=== PATIENT | female | born 1950 | race Caucasian/White ===

== ENCOUNTER 2016-11-20 20:40 | Emergency (ER) | payer MEDICARE, OTHER ==
[2016-11-20] MEDS ORDERED: Bacitracin Zinc 1 Packet ONE (21:41)
[2016-11-21 02:55] LABS: ALT (SGPT) 16 U/L (0-55); AST (SGOT) 14 U/L (5-34); Alkaline Phosphatase 137 U/L (40-150); Anion Gap 19 mmol/L (10-20); BUN (Urea Nitrogen) 35 mg/dL (9.8-20.1); Bilirubin, Total 0.3 mg/dL (0.2-1.2); Calc. Creatinine Clearance 0 mL/min (70-130); Calcium 9.9 mg/dL (7.8-10.44); Carbon Dioxide 23 mmol/L (23-31); Chloride 101 mmol/L (98-107); Estimated GFR-MDRD 33; Globulin 3.9 g/dL (2.4-3.5); Protein, Total 7.9 g/dL (5.8-8.1)
[2016-11-21 02:58] LABS: Troponin I Less than 0.010 ng/mL (< 0.028)
[2016-11-21 03:00] LABS: #Basophils 0.1 thou/uL (0.0-0.2); #Eosinphils 0.4 thou/uL (0.0-0.7); #Lymphocytes 4.3 thou/uL (1.20-3.40); #Monocytes 0.4 thou/uL (0.11-0.59); #Neutrophils 5.3 thou/uL (1.40-6.50); %Basophils 1.4 % (0.0-1.0); %Eosinophils 3.7 % (0.0-10.0); %Monocytes 3.8 % (0.0-10.0); Hematocrit 46.5 % (36.0-47.0); Mean Platelet Volume 6.7 fL (7.4-10.4); White Blood Cell (WBC) Count 10.5 thou/uL (4.8-10.8)
[2016-11-21 03:03] LABS: PTT 49.3 SEC (22.9-36.1); Prothrombin Time 26.2 SEC (12.0-14.7)
[2016-11-21 03:08] LABS: Bilirubin Negative (Negative); Blood, Urine Negative (Negative); Glucose, Urine (Dipstick) 500 mg/dL (Negative); Ketone, Urine Negative (Negative); Nitrite Negative (Negative); Protein, Urine (Dipstick) Negative (Neg-Trace); Urobilinogen 0.2 mg/dL (0.2-1.0)
--- NOTE | 2016-11-21 06:01 | CT ---
CT OF THE BRAIN WITHOUT CONTRAST 11/20/2016 A non-contrast CT was done following trauma. The ventricles are normal in size for age and show no shift. No intracranial bleeding or extraaxial hematoma was seen. There is no sign of acute stroke, mass, or edema. The calvarium appears intact. The sphenoid sinus and visible paranasal sinuses ar e clear. IMPRESSION: No acute intracranial findings. POS: HOME
--- NOTE | 2016-11-21 06:07 | RAD ---
LEFT HAND THREE VIEWS 11/20/2016 A nondisplaced fracture is seen at the base of the proximal phalanx of the index finger that extends into the second MCP joint. The remainder of the hand and wrist appears intact. On the oblique vie w, there was a questionable short line in the distal pole of the scaphoid laterally, but it seems mo re likely to be a trabecular marking than fracture. This should be correlated with any point tender ness here. Otherwise, osteoarthritis was prominently noted in the fingers, particularly the DIP jessica nts. IMPRESSION: 1. Acute fracture at the base of the proximal phalanx of the index finger. 2. Osteoarthritis. 3. Equivocal line in the distal pole of the scaphoid that is most likely just a trabecular marking. If there is point tenderness in the snuff box, however, then delayed scaphoid views in 7-10 days sh ould be considered. Code T. POS: HOME
--- NOTE | 2016-11-21 06:09 | RAD ---
PORTABLE CHEST 11/20/2016 An AP portable film at 2236 hours shows the heart to be normal in size for body habitus and projecti on. There has been a prior CABG. There are no congestive findings, pleural effusions, or lobar inf iltrates. Streaking around the lingula region is most likely scarring. IMPRESSION: No acute findings. POS: HOME
== END 2016-11-20 23:54 | disposition short-term general hospital (02) ==
LOC: BURERS 20:40
DX: S62.611A Displaced fracture of proximal phalanx of left index finger, initial encounter for closed fracture (principal); S00.12XA Contusion of left eyelid and periocular area, initial encounter; S60.212A Contusion of left wrist, initial encounter; I95.9 Hypotension, unspecified; E11.9 Type 2 diabetes mellitus without complications; J44.9 Chronic obstructive pulmonary disease, unspecified; Z79.4 Long term (current) use of insulin; Z87.891 Personal history of nicotine dependence; W19.XXXA Unspecified fall, initial encounter
CPT/HCPCS: 36416; 70450; 71010; 80053; 81003; 82553; 85025; 85610; 85730; 96360

== ENCOUNTER 2017-05-04 23:36 | Emergency (ER) | payer MEDICARE ==
[2017-05-04] MEDS ORDERED: Metoprolol Tartrate 5 MG/5 ML VIAL ONE (23:54)
[2017-05-04] MEDS ORDERED: Morphine Sulfate 2 MG/ML SYRINGE ONE (23:56)
[2017-05-04] MEDS ORDERED: diphenhydrAMINE HCl 50 MG/ML 1 ML VIAL ONE (23:56)
[2017-05-05 00:06] LABS: #Basophils 0.1 thou/uL (0.0-0.2); #Eosinphils 0.9 thou/uL (0.0-0.7); #Lymphocytes 3.5 thou/uL (1.20-3.40); #Monocytes 0.5 thou/uL (0.11-0.59); %Basophils 1.4 % (0.0-1.0); %Lymphocytes 34.6 % (21.0-51.0); %Monocytes 4.5 % (0.0-10.0); %Neutrophils 50.5 % (42.0-75.0); Hemoglobin 14.2 g/dL (12.0-16.0); Mean Corpuscular HGB CONC 33.3 g/dL (32.0-36.0); Mean Corpuscular Hemoglobin 29.6 pg (27.0-31.0); Mean Corpuscular Volume 89.2 fl (81.0-99.0); Mean Platelet Volume 6.7 fL (7.4-10.4); Platelet Count 332 thou/uL (130-400); RBC Distribution Width 12.7 % (11.5-14.5)
[2017-05-05 00:09] LABS: INR-International Normal Ratio 3.9; PTT 70.7 SEC (22.9-36.1); Prothrombin Time 40.5 SEC (12.0-14.7)
[2017-05-05 00:19] LABS: ALT (SGPT) 14 U/L (8-55); AST (SGOT) 9 U/L (5-34); Albumin 3.6 g/dL (3.4-4.8); Alkaline Phosphatase 130 U/L (40-150); Anion Gap 18 mmol/L (10-20); BUN (Urea Nitrogen) 21 mg/dL (9.8-20.1); Bilirubin, Total 0.3 mg/dL (0.2-1.2); Calc. Creatinine Clearance 0 mL/min (70-130); Calcium 9.5 mg/dL (7.8-10.44); Carbon Dioxide 22 mmol/L (23-31); Chloride 100 mmol/L (98-107); Estimated GFR-MDRD 37; Globulin 3.6 g/dL (2.4-3.5); Glucose 447 mg/dL (80-115); Lipase 13 U/L (8-78); Protein, Total 7.2 g/dL (6.0-8.3); Sodium 136 mmol/L (136-145)
[2017-05-05 00:20] LABS: CKMB 1.5 ng/mL (0-6.6); Troponin I Less than 0.010 ng/mL (< 0.028)
[2017-05-05] MEDS ORDERED: Insulin Regular 300 UNITS/3 ML VIAL ONE (00:31)
--- NOTE | 2017-05-05 07:31 | RAD ---
PORTABLE CHEST: Date: 05/04/17 An AP portable film at 2352 hours is compared with a 11/20/16 study. FINDINGS: The cardiac size is unchanged. There has been a prior CABG. No acute infiltrate or effusion present. Some lingular scarring is suggested. There is no vascular congestion or edema. IMPRESSION: Stable exam showing no acute finding. POS: HOME
== END 2017-05-05 01:33 | disposition short-term general hospital (02) ==
LOC: BURERS 23:36
DX: R07.9 Chest pain, unspecified (principal); R79.1 Abnormal coagulation profile; E11.65 Type 2 diabetes mellitus with hyperglycemia; E03.9 Hypothyroidism, unspecified; I10 Essential (primary) hypertension; M19.90 Unspecified osteoarthritis, unspecified site; Z79.4 Long term (current) use of insulin; Z79.899 Other long term (current) drug therapy; Z79.84 Long term (current) use of oral hypoglycemic drugs
CPT/HCPCS: 71010; 80053; 82553; 83690; 83880; 84484; 85025; 85610; 85730; 93005; 94760; 96374; 96375; J1200; J1815; J2270

== ENCOUNTER 2017-12-21 20:31 | Emergency (ER) | payer MEDICARE ==
[2017-12-21] MEDS ORDERED: Cyclobenzaprine 10 MG TAB ONE (21:34)
== END 2017-12-21 21:47 | disposition home or self-care (01) ==
LOC: BURERS 20:31
DX: M62.838 Other muscle spasm (principal); R21 Rash and other nonspecific skin eruption; E66.9 Obesity, unspecified; I25.10 Atherosclerotic heart disease of native coronary artery without angina pectoris; J44.9 Chronic obstructive pulmonary disease, unspecified; E11.9 Type 2 diabetes mellitus without complications; E03.9 Hypothyroidism, unspecified; M19.90 Unspecified osteoarthritis, unspecified site; I11.0 Hypertensive heart disease with heart failure; I50.9 Heart failure, unspecified; Z79.4 Long term (current) use of insulin; Z79.899 Other long term (current) drug therapy; Z79.01 Long term (current) use of anticoagulants
CPT/HCPCS: 99282

== ENCOUNTER 2018-04-16 14:34 | Inpatient (IN) | payer MEDICARE ==
[~2018-04-16 14:34] MED LIST: Iopamidol 370 76% 100 ML VIAL ONE
[2018-04-16] MEDS ORDERED: Dextrose 5% in Water 1,000 ML IV PRN (20:45)
[2018-04-16] MEDS ORDERED: Dextrose 50% Abboject 50 ML SYRINGE SLOW IVP PRN (20:45)
[2018-04-16] MEDS ORDERED: Gabapentin 100 MG CAP PO SCH ×2 (21:00→21:15)
[2018-04-16] MEDS ORDERED: rOPINIRole HCl 2 MG TAB PO SCH (21:15)
[2018-04-16] MEDS ORDERED: Gabapentin 300 MG CAP PO SCH (21:15)
[2018-04-16] MEDS: Potassium Chloride 10 MEQ TAB PO SCH (21:35)
[2018-04-16] MEDS: Clindamycin 150 MG CAP PO SCH (21:36)
[2018-04-16] MEDS: DULoxetine 30 MG CAP PO SCH (21:37)
[2018-04-16] MEDS: Amitriptyline HCl 25 MG TAB PO SCH (21:38)
[2018-04-16] MEDS: Insulin Regular 300 UNITS/3 ML VIAL SC PRN (21:54)
[2018-04-17] MEDS: Levothyroxine Sodium 50 MCG TAB PO SCH (05:51)
[2018-04-17] MEDS: Clindamycin 150 MG CAP PO SCH ×3 (09:09→21:00)
[2018-04-17] MEDS: Potassium Chloride 10 MEQ TAB PO SCH ×2 (09:10→21:02)
[2018-04-17] MEDS: Furosemide 40 MG TAB PO SCH ×2 (09:11→15:08)
[2018-04-17] MEDS: Gabapentin 300 MG CAP PO SCH ×3 (09:11→21:01)
[2018-04-17] MEDS: DULoxetine 30 MG CAP PO SCH ×2 (09:11→21:00)
[2018-04-17] MEDS: Aspirin 81 mg Enteric Coated Tablet PO SCH (09:12)
[2018-04-17] MEDS: Famotidine 20 MG TAB PO SCH ×2 (09:12→21:02)
[2018-04-17] MEDS: Saccharomyces boulardii 250 MG CAP PO SCH (09:12)
[2018-04-17] MEDS: Carvedilol 12.5 MG TAB PO SCH ×2 (09:12→17:54)
[2018-04-17] MEDS: Spironolactone 25 MG TAB PO SCH (09:12)
[2018-04-17] MEDS: NPH, Human Insulin Isophane 300 UNIT/3 ML VIAL SC SCH ×2 (09:13→17:52)
[2018-04-17] MEDS: Insulin Regular 300 UNITS/3 ML VIAL SC PRN ×4 (09:13→21:03)
[2018-04-17] MEDS: Gabapentin 100 MG CAP PO SCH ×3 (09:23→21:01)
[2018-04-17] MEDS: Clotrimazole 1% Cream 15 GM TUBE TOP SCH ×2 (13:25→20:59)
[2018-04-17] MEDS: Silver Sulfadiazine 1% Cream 20 GM TUBE TOP SCH (20:58)
[2018-04-17] MEDS: rOPINIRole HCl 2 MG TAB PO SCH (21:01)
[2018-04-17] MEDS: Amitriptyline HCl 25 MG TAB PO SCH (21:02)
[2018-04-18 05:33] LABS: Anion Gap 15 mmol/L (10-20); BUN (Urea Nitrogen) 20 mg/dL (9.8-20.1); Calc. Creatinine Clearance 105 mL/min (70-130); Calcium 8.9 mg/dL (7.8-10.44); Carbon Dioxide 26 mmol/L (23-31); Chloride 99 mmol/L (98-107); Estimated GFR-MDRD 61; Glucose 78 mg/dL (80-115); Sodium 136 mmol/L (136-145)
[2018-04-18 05:56] LABS: #Basophils 0.1 thou/uL (0.0-0.2); #Eosinphils 0.6 thou/uL (0.0-0.7); #Monocytes 0.6 thou/uL (0.11-0.59); #Neutrophils 3.6 thou/uL (1.40-6.50); %Basophils 1.3 % (0.0-1.0); %Eosinophils 7.2 % (0.0-10.0); %Lymphocytes 38.8 % (21.0-51.0); %Monocytes 7.4 % (0.0-10.0); %Neutrophils 45.4 % (42.0-75.0); Anisocytosis SLIGHT = 6-15 cells (100X) (0-5/hpf); Hemoglobin 8.8 g/dL (12.0-16.0); MDiff Complete? YES; Mean Corpuscular HGB CONC 32.3 g/dL (32.0-36.0); Mean Corpuscular Hemoglobin 22.5 pg (27.0-31.0); Mean Corpuscular Volume 69.8 fL (78.0-98.0); Mean Platelet Volume 5.2 fL (7.4-10.4); Microcytosis SLIGHT = 6-15 cells (100X) (0-5/hpf); PLT Morphology Comment Appears Increased; Platelet Count 493 thou/uL (130-400); RBC Distribution Width 15.4 % (11.5-14.5); Red Blood Cell (RBC) Count 3.89 mill/uL (4.20-5.40); Small Platelets SLIGHT; White Blood Cell (WBC) Count 7.8 thou/uL (4.8-10.8)
[2018-04-18] MEDS: Levothyroxine Sodium 50 MCG TAB PO SCH (06:03)
[2018-04-18] MEDS: Saccharomyces boulardii 250 MG CAP PO SCH (08:23)
[2018-04-18] MEDS: Gabapentin 100 MG CAP PO SCH ×3 (08:24→20:26)
[2018-04-18] MEDS: Gabapentin 300 MG CAP PO SCH ×3 (08:24→20:24)
[2018-04-18] MEDS: Clindamycin 150 MG CAP PO SCH ×3 (08:24→20:27)
[2018-04-18] MEDS: Furosemide 40 MG TAB PO SCH ×2 (08:25→15:03)
[2018-04-18] MEDS: Carvedilol 12.5 MG TAB PO SCH ×2 (08:25→16:32)
[2018-04-18] MEDS: DULoxetine 30 MG CAP PO SCH ×2 (08:26→20:26)
[2018-04-18] MEDS: Aspirin 81 mg Enteric Coated Tablet PO SCH (08:26)
[2018-04-18] MEDS: Spironolactone 25 MG TAB PO SCH (08:27)
[2018-04-18] MEDS: Famotidine 20 MG TAB PO SCH ×2 (08:27→20:28)
[2018-04-18] MEDS: Potassium Chloride 10 MEQ TAB PO SCH ×2 (08:27→20:28)
[2018-04-18] MEDS: NPH, Human Insulin Isophane 300 UNIT/3 ML VIAL SC SCH ×2 (08:29→16:32)
[2018-04-18] MEDS: Clotrimazole 1% Cream 15 GM TUBE TOP SCH (08:42)
[2018-04-18] MEDS: Silver Sulfadiazine 1% Cream 20 GM TUBE TOP SCH (08:43)
[2018-04-18] MEDS: Insulin Regular 300 UNITS/3 ML VIAL SC PRN (12:51)
[2018-04-18] MEDS: Nystatin Powder 15 GM BOT TOP PRN (15:04)
[2018-04-18] MEDS: rOPINIRole HCl 2 MG TAB PO SCH (20:24)
[2018-04-18] MEDS: Amitriptyline HCl 25 MG TAB PO SCH (20:28)
[2018-04-19] MEDS: Levothyroxine Sodium 50 MCG TAB PO SCH (06:20)
[2018-04-19] MEDS: Saccharomyces boulardii 250 MG CAP PO SCH (08:32)
[2018-04-19] MEDS: Enoxaparin Sodium 40 MG/0.4 ML SYRINGE SC SCH (08:32)
[2018-04-19] MEDS: Gabapentin 100 MG CAP PO SCH ×3 (08:33→20:49)
[2018-04-19] MEDS: Clindamycin 150 MG CAP PO SCH ×3 (08:33→20:47)
[2018-04-19] MEDS: Carvedilol 12.5 MG TAB PO SCH ×2 (08:33→17:25)
[2018-04-19] MEDS: Aspirin 81 mg Enteric Coated Tablet PO SCH (08:33)
[2018-04-19] MEDS: Furosemide 40 MG TAB PO SCH ×2 (08:33→14:58)
[2018-04-19] MEDS: Potassium Chloride 10 MEQ TAB PO SCH ×2 (08:34→20:50)
[2018-04-19] MEDS: DULoxetine 30 MG CAP PO SCH ×2 (08:34→20:50)
[2018-04-19] MEDS: Famotidine 20 MG TAB PO SCH ×2 (08:35→20:52)
[2018-04-19] MEDS: Spironolactone 25 MG TAB PO SCH (08:35)
[2018-04-19] MEDS: Gabapentin 300 MG CAP PO SCH ×3 (08:36→20:49)
[2018-04-19] MEDS ORDERED: Milk Of Magnesia 30 ML UDCUP PO PRN (10:05)
[2018-04-19] MEDS ORDERED: Bisacodyl 10 MG SUPP PR PRN (10:05)
[2018-04-19] MEDS ORDERED: NPH, Human Insulin Isophane 300 UNIT/3 ML VIAL SC SCH (10:45)
[2018-04-19] MEDS: Silver Sulfadiazine 1% Cream 20 GM TUBE TOP SCH (10:54)
[2018-04-19] MEDS: NPH, Human Insulin Isophane 300 UNIT/3 ML VIAL SC SCH ×2 (11:18→17:26)
[2018-04-19] MEDS: Insulin Regular 300 UNITS/3 ML VIAL SC PRN ×3 (13:05→21:01)
[2018-04-19] MEDS: Amitriptyline HCl 25 MG TAB PO SCH (20:52)
[2018-04-19] MEDS: rOPINIRole HCl 2 MG TAB PO SCH (20:52)
[2018-04-19] MEDS: Nystatin Powder 15 GM BOT TOP PRN (21:19)
[2018-04-20] MEDS: Levothyroxine Sodium 50 MCG TAB PO SCH (07:19)
[2018-04-20] MEDS ORDERED: NPH, Human Insulin Isophane 300 UNIT/3 ML VIAL SC SCH (08:00)
[2018-04-20] MEDS: Spironolactone 25 MG TAB PO SCH (08:07)
[2018-04-20] MEDS: DULoxetine 30 MG CAP PO SCH ×2 (08:07→20:39)
[2018-04-20] MEDS: Furosemide 40 MG TAB PO SCH ×2 (08:08→15:07)
[2018-04-20] MEDS: Saccharomyces boulardii 250 MG CAP PO SCH (08:09)
[2018-04-20] MEDS: Aspirin 81 mg Enteric Coated Tablet PO SCH (08:09)
[2018-04-20] MEDS: Gabapentin 300 MG CAP PO SCH ×3 (08:09→20:39)
[2018-04-20] MEDS: Gabapentin 100 MG CAP PO SCH ×3 (08:09→20:39)
[2018-04-20] MEDS: Famotidine 20 MG TAB PO SCH ×2 (08:09→20:40)
[2018-04-20] MEDS: Potassium Chloride 10 MEQ TAB PO SCH (08:09)
[2018-04-20] MEDS: Clindamycin 150 MG CAP PO SCH ×3 (08:10→20:38)
[2018-04-20] MEDS: Carvedilol 12.5 MG TAB PO SCH ×2 (08:10→17:03)
[2018-04-20] MEDS: Enoxaparin Sodium 40 MG/0.4 ML SYRINGE SC SCH (08:10)
[2018-04-20] MEDS: Insulin Regular 300 UNITS/3 ML VIAL SC PRN ×3 (08:11→17:04)
[2018-04-20] MEDS: Silver Sulfadiazine 1% Cream 20 GM TUBE TOP SCH (08:24)
[2018-04-20] MEDS: Acetaminophen 325 MG TAB PO PRN ×2 (12:51→20:55)
[2018-04-20] MEDS: Potassium Chloride 20 MEQ TAB PO SCH (17:03)
[2018-04-20] MEDS: NPH, Human Insulin Isophane 300 UNIT/3 ML VIAL SC SCH (17:04)
[2018-04-20] MEDS: Amitriptyline HCl 25 MG TAB PO SCH (20:40)
[2018-04-20] MEDS: rOPINIRole HCl 2 MG TAB PO SCH (20:40)
[2018-04-20] MEDS ORDERED: Insulin Regular 300 UNITS/3 ML VIAL SC SCH (21:30)
[2018-04-21] MEDS: Levothyroxine Sodium 50 MCG TAB PO SCH (05:58)
[2018-04-21] MEDS: Gabapentin 100 MG CAP PO SCH ×3 (07:59→21:09)
[2018-04-21] MEDS: Saccharomyces boulardii 250 MG CAP PO SCH (07:59)
[2018-04-21] MEDS: Gabapentin 300 MG CAP PO SCH ×3 (07:59→21:09)
[2018-04-21] MEDS: Spironolactone 25 MG TAB PO SCH (07:59)
[2018-04-21] MEDS: Potassium Chloride 20 MEQ TAB PO SCH ×2 (08:00→17:32)
[2018-04-21] MEDS: Famotidine 20 MG TAB PO SCH ×2 (08:00→21:10)
[2018-04-21] MEDS: DULoxetine 30 MG CAP PO SCH ×2 (08:00→21:10)
[2018-04-21] MEDS: Carvedilol 12.5 MG TAB PO SCH ×2 (08:01→17:32)
[2018-04-21] MEDS: Furosemide 40 MG TAB PO SCH ×2 (08:01→15:08)
[2018-04-21] MEDS: Aspirin 81 mg Enteric Coated Tablet PO SCH (08:01)
[2018-04-21] MEDS: Clindamycin 150 MG CAP PO SCH ×3 (08:01→21:11)
[2018-04-21] MEDS: Enoxaparin Sodium 40 MG/0.4 ML SYRINGE SC SCH (08:02)
[2018-04-21] MEDS: Acetaminophen 325 MG TAB PO PRN (08:02)
[2018-04-21] MEDS: Silver Sulfadiazine 1% Cream 20 GM TUBE TOP SCH (08:03)
[2018-04-21] MEDS: Insulin Regular 300 UNITS/3 ML VIAL SC PRN ×4 (08:03→21:38)
[2018-04-21] MEDS: Insulin Regular 300 UNITS/3 ML VIAL SC SCH ×2 (08:04→17:41)
[2018-04-21] MEDS: NPH, Human Insulin Isophane 300 UNIT/3 ML VIAL SC SCH ×2 (08:04→17:32)
[2018-04-21] MEDS: hydrOXYzine 25 MG TAB PO SCH (17:32)
[2018-04-21] MEDS: rOPINIRole HCl 2 MG TAB PO SCH (21:09)
[2018-04-22] MEDS: hydrOXYzine 25 MG TAB PO SCH ×5 (00:10→23:12)
[2018-04-22] MEDS: Levothyroxine Sodium 50 MCG TAB PO SCH (05:54)
[2018-04-22] MEDS: Gabapentin 300 MG CAP PO SCH ×3 (08:11→20:48)
[2018-04-22] MEDS: Saccharomyces boulardii 250 MG CAP PO SCH (08:11)
[2018-04-22] MEDS: Clindamycin 150 MG CAP PO SCH ×3 (08:11→20:47)
[2018-04-22] MEDS: Aspirin 81 mg Enteric Coated Tablet PO SCH (08:12)
[2018-04-22] MEDS: Carvedilol 12.5 MG TAB PO SCH ×2 (08:13→16:46)
[2018-04-22] MEDS: Gabapentin 100 MG CAP PO SCH ×3 (08:13→20:48)
[2018-04-22] MEDS: DULoxetine 30 MG CAP PO SCH ×2 (08:13→20:48)
[2018-04-22] MEDS: Famotidine 20 MG TAB PO SCH ×2 (08:13→20:49)
[2018-04-22] MEDS: Spironolactone 25 MG TAB PO SCH (08:13)
[2018-04-22] MEDS: Silver Sulfadiazine 1% Cream 20 GM TUBE TOP SCH (08:13)
[2018-04-22] MEDS: Enoxaparin Sodium 40 MG/0.4 ML SYRINGE SC SCH (08:14)
[2018-04-22] MEDS: Furosemide 40 MG TAB PO SCH ×2 (08:14→15:12)
[2018-04-22] MEDS: Potassium Chloride 20 MEQ TAB PO SCH ×2 (08:14→16:46)
[2018-04-22] MEDS: Nystatin Powder 15 GM BOT TOP PRN (08:15)
[2018-04-22] MEDS: NPH, Human Insulin Isophane 300 UNIT/3 ML VIAL SC SCH ×2 (08:15→16:50)
[2018-04-22] MEDS: Insulin Regular 300 UNITS/3 ML VIAL SC SCH ×2 (08:17→16:59)
[2018-04-22] MEDS: Insulin Regular 300 UNITS/3 ML VIAL SC PRN ×2 (08:17→12:46)
[2018-04-22] MEDS: Acetaminophen 325 MG TAB PO PRN (11:38)
[2018-04-22] MEDS: rOPINIRole HCl 2 MG TAB PO SCH (20:47)
[2018-04-23 01:33] VITALS: BMI 39.6
[2018-04-23] MEDS: Levothyroxine Sodium 50 MCG TAB PO SCH (05:47)
[2018-04-23] MEDS: hydrOXYzine 25 MG TAB PO SCH ×3 (05:48→17:31)
[2018-04-23 06:20] LABS: Anion Gap 17 mmol/L (10-20); BUN (Urea Nitrogen) 23 mg/dL (9.8-20.1); Calc. Creatinine Clearance 84 mL/min (70-130); Calcium 9.5 mg/dL (7.8-10.44); Carbon Dioxide 27 mmol/L (23-31); Chloride 97 mmol/L (98-107); Estimated GFR-MDRD 44; Glucose 126 mg/dL (80-115); Potassium 3.9 mmol/L (3.5-5.1); Sodium 137 mmol/L (136-145)
[2018-04-23 06:33] LABS: #Basophils 0.1 thou/uL (0.0-0.2); #Eosinphils 0.5 thou/uL (0.0-0.7); #Lymphocytes 3.2 thou/uL (1.20-3.40); #Monocytes 0.4 thou/uL (0.11-0.59); #Neutrophils 2.9 thou/uL (1.40-6.50); %Basophils 1.2 % (0.0-1.0); %Eosinophils 6.6 % (0.0-10.0); %Lymphocytes 45.7 % (21.0-51.0); %Monocytes 5.6 % (0.0-10.0); %Neutrophils 40.9 % (42.0-75.0); Hemoglobin 8.5 g/dL (12.0-16.0); Mean Corpuscular HGB CONC 33.3 g/dL (32.0-36.0); Mean Corpuscular Hemoglobin 23.2 pg (27.0-31.0); Mean Corpuscular Volume 69.9 fL (78.0-98.0); Mean Platelet Volume 4.5 fL (7.4-10.4); Platelet Count 568 thou/uL (130-400); RBC Distribution Width 15.5 % (11.5-14.5); Red Blood Cell (RBC) Count 3.64 mill/uL (4.20-5.40)
[2018-04-23] MEDS: Insulin Regular 300 UNITS/3 ML VIAL SC SCH ×2 (07:39→17:31)
[2018-04-23] MEDS: NPH, Human Insulin Isophane 300 UNIT/3 ML VIAL SC SCH ×2 (07:40→17:32)
[2018-04-23] MEDS: Insulin Regular 300 UNITS/3 ML VIAL SC PRN ×4 (07:41→21:46)
[2018-04-23] MEDS: Carvedilol 12.5 MG TAB PO SCH ×2 (08:53→17:30)
[2018-04-23] MEDS: Potassium Chloride 20 MEQ TAB PO SCH ×2 (08:54→17:30)
[2018-04-23] MEDS: Furosemide 40 MG TAB PO SCH ×2 (08:54→14:45)
[2018-04-23] MEDS: Enoxaparin Sodium 40 MG/0.4 ML SYRINGE SC SCH (08:54)
[2018-04-23] MEDS: Gabapentin 300 MG CAP PO SCH ×3 (08:55→21:27)
[2018-04-23] MEDS: Gabapentin 100 MG CAP PO SCH ×3 (08:55→21:27)
[2018-04-23] MEDS: Aspirin 81 mg Enteric Coated Tablet PO SCH (08:55)
[2018-04-23] MEDS: Spironolactone 25 MG TAB PO SCH (08:56)
[2018-04-23] MEDS: Famotidine 20 MG TAB PO SCH ×2 (08:56→21:26)
[2018-04-23] MEDS: DULoxetine 30 MG CAP PO SCH ×2 (08:56→21:26)
[2018-04-23] MEDS: Clindamycin 150 MG CAP PO SCH ×3 (08:59→21:25)
[2018-04-23] MEDS: Saccharomyces boulardii 250 MG CAP PO SCH (09:02)
[2018-04-23] MEDS: Silver Sulfadiazine 1% Cream 20 GM TUBE TOP SCH (09:13)
[2018-04-23 09:55] LABS: Anisocytosis SLIGHT = 6-15 cells (100X) (0-5/hpf); Microcytosis SLIGHT = 6-15 cells (100X) (0-5/hpf)
[2018-04-23 09:56] LABS: PLT Morphology Comment Appears Increased
[2018-04-23] MEDS: rOPINIRole HCl 2 MG TAB PO SCH (18:19)
[2018-04-24] MEDS: hydrOXYzine 25 MG TAB PO SCH ×5 (01:15→23:15)
[2018-04-24] MEDS: Acetaminophen 325 MG TAB PO PRN ×2 (06:11→19:44)
[2018-04-24] MEDS: Levothyroxine Sodium 50 MCG TAB PO SCH (06:12)
[2018-04-24] MEDS: Clindamycin 150 MG CAP PO SCH ×3 (08:11→20:49)
[2018-04-24] MEDS: Gabapentin 100 MG CAP PO SCH ×3 (08:14→20:50)
[2018-04-24] MEDS: Gabapentin 300 MG CAP PO SCH ×3 (08:14→20:49)
[2018-04-24] MEDS: DULoxetine 30 MG CAP PO SCH ×2 (08:14→20:49)
[2018-04-24] MEDS: Furosemide 40 MG TAB PO SCH ×2 (08:14→14:36)
[2018-04-24] MEDS: Saccharomyces boulardii 250 MG CAP PO SCH (08:15)
[2018-04-24] MEDS: Spironolactone 25 MG TAB PO SCH (08:15)
[2018-04-24] MEDS: Famotidine 20 MG TAB PO SCH ×2 (08:15→20:49)
[2018-04-24] MEDS: Aspirin 81 mg Enteric Coated Tablet PO SCH (08:15)
[2018-04-24] MEDS: Carvedilol 12.5 MG TAB PO SCH ×2 (08:15→17:54)
[2018-04-24] MEDS: Potassium Chloride 20 MEQ TAB PO SCH ×2 (08:16→17:53)
[2018-04-24] MEDS: Enoxaparin Sodium 40 MG/0.4 ML SYRINGE SC SCH (08:16)
[2018-04-24] MEDS: Silver Sulfadiazine 1% Cream 20 GM TUBE TOP SCH (08:16)
[2018-04-24] MEDS: Insulin Regular 300 UNITS/3 ML VIAL SC SCH ×2 (08:17→17:54)
[2018-04-24] MEDS: Insulin Regular 300 UNITS/3 ML VIAL SC PRN ×4 (08:18→20:56)
[2018-04-24] MEDS: NPH, Human Insulin Isophane 300 UNIT/3 ML VIAL SC SCH ×2 (08:18→17:55)
[2018-04-24] MEDS: Nystatin Powder 15 GM BOT TOP PRN (14:37)
[2018-04-24] MEDS: rOPINIRole HCl 2 MG TAB PO SCH (19:41)
[2018-04-25] MEDS: hydrOXYzine 25 MG TAB PO SCH ×4 (05:08→22:11)
[2018-04-25] MEDS: Levothyroxine Sodium 50 MCG TAB PO SCH (05:08)
[2018-04-25] MEDS: Acetaminophen 325 MG TAB PO PRN ×2 (05:09→20:42)
[2018-04-25] MEDS: Gabapentin 100 MG CAP PO SCH ×3 (08:23→20:40)
[2018-04-25] MEDS: Gabapentin 300 MG CAP PO SCH ×3 (08:23→20:39)
[2018-04-25] MEDS: DULoxetine 30 MG CAP PO SCH ×2 (08:25→20:40)
[2018-04-25] MEDS: Potassium Chloride 20 MEQ TAB PO SCH ×2 (08:25→16:37)
[2018-04-25] MEDS: Famotidine 20 MG TAB PO SCH ×2 (08:25→20:41)
[2018-04-25] MEDS: Aspirin 81 mg Enteric Coated Tablet PO SCH (08:25)
[2018-04-25] MEDS: Furosemide 40 MG TAB PO SCH ×2 (08:25→14:58)
[2018-04-25] MEDS: Carvedilol 12.5 MG TAB PO SCH ×2 (08:25→16:37)
[2018-04-25] MEDS: Spironolactone 25 MG TAB PO SCH (08:25)
[2018-04-25] MEDS: Clindamycin 150 MG CAP PO SCH ×3 (08:26→20:39)
[2018-04-25] MEDS: Saccharomyces boulardii 250 MG CAP PO SCH (08:26)
[2018-04-25] MEDS: Enoxaparin Sodium 40 MG/0.4 ML SYRINGE SC SCH (08:27)
[2018-04-25] MEDS: NPH, Human Insulin Isophane 300 UNIT/3 ML VIAL SC SCH ×2 (08:28→16:41)
[2018-04-25] MEDS: Silver Sulfadiazine 1% Cream 20 GM TUBE TOP SCH (08:28)
[2018-04-25] MEDS: Insulin Regular 300 UNITS/3 ML VIAL SC SCH ×2 (08:29→16:40)
[2018-04-25] MEDS: Insulin Regular 300 UNITS/3 ML VIAL SC PRN ×3 (12:48→21:38)
[2018-04-25] MEDS: rOPINIRole HCl 2 MG TAB PO SCH (19:39)
[2018-04-26] MEDS: hydrOXYzine 25 MG TAB PO SCH ×4 (05:54→23:45)
[2018-04-26] MEDS: Levothyroxine Sodium 50 MCG TAB PO SCH (05:54)
[2018-04-26] MEDS: Insulin Regular 300 UNITS/3 ML VIAL SC SCH ×2 (08:43→16:54)
[2018-04-26] MEDS: NPH, Human Insulin Isophane 300 UNIT/3 ML VIAL SC SCH ×2 (08:44→16:55)
[2018-04-26] MEDS: Enoxaparin Sodium 40 MG/0.4 ML SYRINGE SC SCH (08:45)
[2018-04-26] MEDS: DULoxetine 30 MG CAP PO SCH ×2 (08:49→20:16)
[2018-04-26] MEDS: Saccharomyces boulardii 250 MG CAP PO SCH (08:49)
[2018-04-26] MEDS: Potassium Chloride 20 MEQ TAB PO SCH ×2 (08:50→16:56)
[2018-04-26] MEDS: Gabapentin 100 MG CAP PO SCH ×3 (08:51→20:16)
[2018-04-26] MEDS: Gabapentin 300 MG CAP PO SCH ×3 (08:52→20:16)
[2018-04-26] MEDS: Famotidine 20 MG TAB PO SCH ×2 (08:53→20:17)
[2018-04-26] MEDS: Aspirin 81 mg Enteric Coated Tablet PO SCH (08:53)
[2018-04-26] MEDS: Spironolactone 25 MG TAB PO SCH (08:54)
[2018-04-26] MEDS: Carvedilol 12.5 MG TAB PO SCH ×2 (08:55→16:56)
[2018-04-26] MEDS: Furosemide 40 MG TAB PO SCH ×2 (08:55→15:32)
[2018-04-26] MEDS: Clindamycin 150 MG CAP PO SCH ×3 (08:56→20:15)
[2018-04-26] MEDS: Silver Sulfadiazine 1% Cream 20 GM TUBE TOP SCH (09:02)
[2018-04-26] MEDS: Insulin Regular 300 UNITS/3 ML VIAL SC PRN ×3 (12:27→20:17)
[2018-04-26] MEDS: rOPINIRole HCl 2 MG TAB PO SCH (18:38)
[2018-04-27 05:27] LABS: Hemoglobin 8.6 g/dL (12.0-16.0); Platelet Count 212 thou/uL (130-400)
[2018-04-27] MEDS: hydrOXYzine 25 MG TAB PO SCH ×2 (05:45→12:03)
[2018-04-27] MEDS: Levothyroxine Sodium 50 MCG TAB PO SCH (05:45)
[2018-04-27 06:17] VITALS: BP 102/58; TEMP 97.7
[2018-04-27] MEDS ORDERED: NPH, Human Insulin Isophane 300 UNIT/3 ML VIAL SC SCH (08:16)
[2018-04-27] MEDS: Insulin Regular 300 UNITS/3 ML VIAL SC SCH (08:50)
[2018-04-27] MEDS: Enoxaparin Sodium 40 MG/0.4 ML SYRINGE SC SCH (08:53)
[2018-04-27] MEDS: DULoxetine 30 MG CAP PO SCH (08:54)
[2018-04-27] MEDS: Gabapentin 300 MG CAP PO SCH ×2 (08:55→14:46)
[2018-04-27] MEDS: Potassium Chloride 20 MEQ TAB PO SCH (08:56)
[2018-04-27] MEDS: Gabapentin 100 MG CAP PO SCH ×2 (08:58→14:46)
[2018-04-27] MEDS: Furosemide 40 MG TAB PO SCH ×2 (08:59→14:46)
[2018-04-27] MEDS: Famotidine 20 MG TAB PO SCH (08:59)
[2018-04-27] MEDS: Aspirin 81 mg Enteric Coated Tablet PO SCH (08:59)
[2018-04-27] MEDS: Carvedilol 12.5 MG TAB PO SCH (08:59)
[2018-04-27] MEDS: Spironolactone 25 MG TAB PO SCH (08:59)
[2018-04-27] MEDS: Saccharomyces boulardii 250 MG CAP PO SCH (09:00)
[2018-04-27] MEDS: NPH, Human Insulin Isophane 300 UNIT/3 ML VIAL SC SCH (09:28)
[2018-04-27] MEDS: Silver Sulfadiazine 1% Cream 20 GM TUBE TOP SCH (10:17)
[2018-04-27] MEDS: Insulin Regular 300 UNITS/3 ML VIAL SC PRN (12:08)
== END 2018-04-27 15:40 | DRG 638 ==
LOC: BURMED 19:44
PROVIDERS: ADMIT Family Medicine; ATTEND Family Medicine
DX: E11.622 Type 2 diabetes mellitus with other skin ulcer (principal); I50.32 Chronic diastolic (congestive) heart failure; L98.1 Factitial dermatitis; L98.492 Non-pressure chronic ulcer of skin of other sites with fat layer exposed; Z91.81 History of falling; E66.01 Morbid (severe) obesity due to excess calories; I25.10 Atherosclerotic heart disease of native coronary artery without angina pectoris; E78.5 Hyperlipidemia, unspecified; E03.9 Hypothyroidism, unspecified; K21.9 Gastro-esophageal reflux disease without esophagitis; I11.0 Hypertensive heart disease with heart failure; G25.81 Restless legs syndrome; M19.90 Unspecified osteoarthritis, unspecified site; M79.7 Fibromyalgia; F41.9 Anxiety disorder, unspecified; F32.9 Major depressive disorder, single episode, unspecified; Z95.1 Presence of aortocoronary bypass graft; A49.02 Methicillin resistant Staphylococcus aureus infection, unspecified site; E11.65 Type 2 diabetes mellitus with hyperglycemia; F39 Unspecified mood [affective] disorder; Z68.39 Body mass index [BMI] 39.0-39.9, adult
CPT/HCPCS: 36415; 36416; 80048; 82565; 85014; 85018; 85025; 85049; A4216; G8978-GP-CK; G8979-GP-CJ; G8987-GO-CK; G8988-GO-CI; J1650; J1815